=== PATIENT | female | born 1980 | race Caucasian/White ===

== ENCOUNTER 2020-12-28 17:22 | Emergency (ER) | payer OTHER, SELFPAY ==
[~2020-12-28] VITALS: Ht 152.4 cm; Wt 90.7 kg
[2020-12-28 18:30] VITALS: BP_SYST 148
[2020-12-28] MEDS ORDERED: predniSONE 20 MG TABLET PO ONE (18:30)
[2020-12-28] MEDS ORDERED: ALBUTEROL SULFATE 0.083% 2.5 MG/3 ML VIAL.NEB INH ONE (18:30)
[2020-12-28] MEDS ORDERED: IPRATROPIUM BROM 0.5 MG/2.5 ML VIAL.NEB (ATROVENT) INH ONE (18:30)
[2020-12-28] MEDS ORDERED: PRED20TA PO (18:56)
[2020-12-28 19:24] VITALS: BP_SYST 122
== END 2020-12-28 19:28 | disposition home or self-care (01) ==
LOC: SED 17:22
DX: J45.901 Unspecified asthma with (acute) exacerbation (principal); Z79.899 Other long term (current) drug therapy
CPT/HCPCS: 71045; 93005; 94640; 99283; J7613